=== PATIENT | female | born 1985 | race Caucasian/White ===

== ENCOUNTER 2023-08-01 23:09 | Emergency (ER) | payer MEDICAID ==
[~2023-08-01] VITALS: Ht 165.1 cm; Wt 117.9 kg
[2023-08-01 23:23] VITALS: BP_SYST 113; PULSE 85; RESP 16; TEMP 98.5; O2SAT 97
[2023-08-01 23:37] VITALS: BP_SYST 113; PULSE 85; RESP 16; TEMP 98.5; O2SAT 97
== END 2023-08-01 23:37 | disposition home or self-care (01) ==
LOC: SED 23:09
DX: R00.2 Palpitations (principal); F41.1 Generalized anxiety disorder; R20.2 Paresthesia of skin; Z79.899 Other long term (current) drug therapy
CPT/HCPCS: 99281